=== PATIENT | female | born 2005 | race Two or more races ===

== ENCOUNTER 2024-11-08 04:25 | Emergency (ER) | payer OTHER ==
[~2024-11-08] VITALS: Ht 172.7 cm; Wt 59.0 kg
== END 2024-11-08 06:34 | disposition home or self-care (01) ==
LOC: ER 04:28
DX: S91.341A Puncture wound with foreign body, right foot, initial encounter (principal); W56.52XA Struck by other fish, initial encounter; Y93.89 Activity, other specified; Y92.832 Beach as the place of occurrence of the external cause